=== PATIENT | female | born 1980 | race American Indian/Alaskan Native ===

== ENCOUNTER 2019-02-07 13:11 | Emergency (ER) | payer SELFPAY ==
[2019-02-07 13:48] VITALS: BP 117/75
--- NOTE | 2019-02-07 13:50 | Event Note ---
ED Screening Note Date of service: 02/07/19 Time: 13:46 ED Screening Note: This initial assessment/diagnostic orders/clinical plan/treatment(s) is/are subject to change based on patients health status, clinical progression and re- assessment by fellow clinical providers in the ED. Further treatment and workup at subsequent clinical providers discretion. Patient/guardian urged not to elope from the ED as their condition may be serious if not clinically assessed and managed. Initial orders include:
--- NOTE | 2019-02-07 13:58 | Event Note ---
ED Screening Note Date of service: 02/07/19 Time: 13:52 ED Screening Note: Patient report 14 weks pregnany and no obgyn. no care, Reports to lower abdomen . Reports nausea and vomiting x 5 days. no abdominal denies vaginal bleeding This initial assessment/diagnostic orders/clinical plan/treatment(s) is/are subject to change based on patients health status, clinical progression and re- assessment by fellow clinical providers in the ED. Further treatment and workup at subsequent clinical providers discretion. Patient/guardian urged not to elope from the ED as their condition may be serious if not clinically assessed and managed. Initial orders include:
[2019-02-07 14:09] LABS: HCG Qualitative,Urine Positive (Negative)
[2019-02-07 14:19] LABS: Bilirubin,Urine NEG (Negative); Blood,Urine NEG (Negative); Calcium Oxalate Crystals,Urine 2+; Color,Urine Yellow (Yellow); Mucus,Urine FEW /HPF; Protein,Urine <15 mg/dL mg/dL (Negative)
[2019-02-07 14:43] LABS: Alanine Aminotransferase 23 units/L (7-56); Albumin 4.1 g/dL (3.9-5); BUN/Creatinine Ratio 15; Bilirubin,Direct < 0.2 mg/dL (0-0.2); Blood Urea Nitrogen 9 mg/dL (7-17); Hemolysis Index 12
[2019-02-07] MEDS ORDERED: METOCLOPRAMIDE 10 MG/2 ML INJ IV ONE (14:50)
[2019-02-07] MEDS ORDERED: SODIUM CHLORIDE 0.9% 1000 ML 1,000 ML IV ONE (14:51)
--- NOTE | 2019-02-07 16:52 | Emergency Department Report ---
ED General Adult HPI - General Chief complaint: Abdominal Pain Stated complaint: COMPLAINT/14 WKS Time Seen by Provider: 02/07/19 13:46 Source: patient Mode of arrival: Ambulatory Limitations: No Limitations - History of Present Illness Initial comments: Patient is a 38-year-old female at 14 weeks who presents with abdominal pain and nausea and vomiting that's been going on for the last couple days. Patient states that she has not followed up with her DIRECTOR MEDICAL ECONOMICS for the length of this . Patient's abdominal pain is moderate nothing makes it better nothing makes it worse. She denies having any chest pain or having any diarrhea . - Related Data Previous Rx's Medication Instructions Recorded Last Taken Type Metoclopramide [Reglan] 10 mg PO Q6H PRN #20 tab 02/07/19 Unknown Rx Allergies Allergy/AdvReac Type Severity Reaction Status Date / Time No Known Allergies Allergy Unverified 02/07/19 13:34 ED Review of Systems ROS: Stated complaint: COMPLAINT/14 WKS Other details as noted in HPI Constitutional: denies: chills, fever Eyes: denies: eye pain, eye discharge, vision change ENT: denies: ear pain, throat pain Respiratory: denies: cough, shortness of breath, wheezing Cardiovascular: denies: chest pain, palpitations Endocrine: no symptoms reported Gastrointestinal: abdominal pain, nausea, vomiting. denies: diarrhea Genitourinary: denies: urgency, dysuria, discharge Musculoskeletal: denies: back pain, joint swelling, arthralgia Skin: denies: rash, lesions Neurological: denies: headache, weakness, paresthesias Psychiatric: denies: anxiety, depression Hematological/Lymphatic: denies: easy bleeding, easy bruising ED Past Medical Hx - Social History Smoking Status: Never Smoker Substance Use Type: None - Medications Home Medications: Home Medications Medication Instructions Recorded Confirmed Last Taken Type Metoclopramide [Reglan] 10 mg PO Q6H PRN #20 tab 02/07/19 Unknown Rx ED Physical Exam - General Limitations: No Limitations General appearance: alert, in no apparent distress - Head Head exam: Present: atraumatic, normocephalic - Eye Eye exam: Present: normal appearance - ENT ENT exam: Present: mucous membranes moist - Neck Neck exam: Present: normal inspection - Respiratory Respiratory exam: Present: normal lung sounds bilaterally. Absent: respiratory distress - Cardiovascular Cardiovascular Exam: Present: regular rate, normal rhythm. Absent: systolic murmur, diastolic murmur, rubs, gallop - GI/Abdominal GI/Abdominal exam: Present: soft, normal bowel sounds - Extremities Exam Extremities exam: Present: normal inspection - Back Exam Back exam: Present: normal inspection - Neurological Exam Neurological exam: Present: alert, oriented X3 - Psychiatric Psychiatric exam: Present: normal affect, normal mood - Skin Skin exam: Present: warm, dry, intact, normal color. Absent: rash ED Course Vital Signs 02/07/19 13:47 Temperature 98.6 F Pulse Rate 110 H Respiratory 18 Rate Blood Pressure 117/75 [Left] O2 Sat by Pulse 100 Oximetry ED Medical Decision Making - Lab Data Result diagrams: 02/07/19 14:03 Lab Results 02/07/19 02/07/19 02/07/19 Range/Units 13:20 14:03 Unknown Sodium 136 L (137-145) mmol/L Potassium 4.5 (3.6-5.0) mmol/L Chloride 100.8 (98-107) mmol/L Carbon Dioxide 22 (22-30) mmol/L Anion Gap 18 mmol/L BUN 9 (7-17) mg/dL Creatinine 0.6 L (0.7-1.2) mg/dL Estimated GFR > 60 ml/min BUN/Creatinine Ratio 15 % Glucose 97 (65-100) mg/dL Calcium 10.0 (8.4-10.2) mg/dL Total Bilirubin 0.20 (0.1-1.2) mg/dL Direct Bilirubin < 0.2 (0-0.2) mg/dL AST 21 (5-40) units/L ALT 23 (7-56) units/L Alkaline Phosphatase 44 (35-129) units/L Total Protein 7.3 (6.3-8.2) g/dL Albumin 4.1 (3.9-5) g/dL Albumin/Globulin Ratio 1.3 % Urine Color Yellow (Yellow) Urine Turbidity Cloudy (Clear) Urine pH 5.0 (5.0-7.0) Ur Specific [place] 1.016 (1.003-1.030) Urine Protein <15 mg/dl (Negative) mg/dL Urine Glucose (UA) Neg (Negative) mg/dL Urine Ketones Neg (Negative) mg/dL Urine Blood Neg (Negative) Urine Nitrite Neg (Negative) Urine Bilirubin Neg (Negative) Urine Urobilinogen 2.0 (<2.0) mg/dL Ur Leukocyte Esterase Mod (Negative) Urine WBC (Auto) 8.0 H (0.0-6.0) /HPF Urine RBC (Auto) 5.0 (0.0-6.0) /HPF U Epithel Cells (Auto) 10.0 (0-13.0) /HPF Calcium Oxalate Crystal 2+ Urine Mucus Few /HPF Urine HCG, Qual Positive A (Negative) - Medical Decision Making Chief Medical diagnosis: Hyperemesis gravidarum Differential medical diagnosis: Molar , ectopic Get ultrasound of baby I'll give patient Reglan IV fluids I'll give blood work and will reevaluate get a urinalysis. Critical care attestation.: If time is entered above; I have spent that time in minutes in the direct care of this critically ill patient, excluding procedure time. ED Disposition Clinical Impression: Nausea and vomiting Qualifiers: Vomiting type: unspecified Vomiting Intractability: non-intractable Qualified Code(s): R11.2 - Nausea with vomiting, unspecified Qualifiers: Weeks of gestation: 15 weeks Qualified Code(s): Z3A.15 - 15 weeks gestation of Disposition: DC-01 TO HOME OR SELFCARE Is pt being admited?: No Does the pt Need Aspirin: No Condition: Stable Instructions: (ED), Morning Sickness (ED) Prescriptions: Metoclopramide [Reglan] 10 mg PO Q6H PRN #20 tab PRN Reason: Nausea Referrals: JENNIFER PIERCE MD [Staff Physician] - 3-5 Days
--- NOTE | 2019-02-07 17:08 | Ultrasound Report ---
ULTRASOUND OBSTETRIC INDICATION / CLINICAL INFORMATION: MAIN: abd pain PELVIC PAIN 2 WEEKS . Clinical Gestational Age (GA): 14 weeks, 4 days TECHNIQUE: Transabdominal. COMPARISON: None available. FINDINGS: There is a single intrauterine . Biparietal Diameter = 3.07 cm = 15 weeks, 5 day(s). Head Circumference = 11.8 cm = 15 weeks, 6 day(s). Abdominal Circumference = 9.4 cm = 15 weeks, 4 day(s). Femur Length = 1.6 cm = 14 weeks, 5 day(s). Average Ultrasound Age (AUA) = 15 weeks, 3 day(s). Heart Rate: 171 beats per minute. Estimated Weight in grams (if calculated): Not calculated Estimated Weight Growth Percentile (if calculated): Not calculated Position: transverse, head to the maternal left. Cervix: closed. Length in cm (if measured): 3.8 cm Placenta: Posterior located and free of the os. Amniotic Fluid Volume: Subjectively normal Amniotic Fluid Index (SALVADOR) in cm (if calculated): . Maternal Adnexa: No significant abnormality. It is too early for a anatomical survey. IMPRESSION: 1. Single, living intrauterine with estimated sonographic age of 15 weeks, 3 day(s). 2. No significant sonographic abnormality. Signer Name: Fiona Long MD Signed: 02/07/2019 5:03 PM Workstation Name: [id number]
== END 2019-02-07 19:03 | disposition home or self-care (01) ==
LOC: ED 13:11
DX: O21.9 Vomiting of pregnancy, unspecified (principal); Z79.899 Other long term (current) drug therapy
CPT/HCPCS: 36415; 76805; 80048; 80076; 81001; 81025; 96361; 96374; 99284; J2765; J7030

== ENCOUNTER 2019-02-18 10:19 | Emergency (ER) | payer OTHER ==
[2019-02-18] MEDS ORDERED: TYLENOL PO ONE (10:42)
[2019-02-18] MEDS ORDERED: REGLAN IV ONE (10:42)
--- NOTE | 2019-02-18 10:47 | Emergency Department Report ---
HPI - General Chief Complaint: Nausea/Vomiting/Diarrhea Time Seen by Provider: 02/18/19 10:34 - HPI HPI: 38-year-old female presents to the emergency department with a complaint of some pelvic pain, nausea and vomiting while . The patient is about 17 weeks at this time. With this she is with 3 live children. She does not have any MANUFACTURING LAB TECHNICIAN. She is taking vitamins. She also complains of a slight headache but denies any vision change, fever, slurred speech, or any neurological deficits. She was here about 10 days ago for similar symptoms. No vaginal bleeding. ED Past Medical Hx - Past Medical History Previous Medical History?: No - Surgical History Past Surgical History?: No - Social History Smoking Status: Never Smoker Substance Use Type: None - Medications Home Medications: Home Medications Medication Instructions Recorded Confirmed Last Taken Type Metoclopramide [Reglan] 10 mg PO Q6H PRN #20 tab 02/07/19 Unknown Rx Nitrofurantoin [place]/M-Cryst 100 mg PO Q12HR #14 capsule 02/18/19 Unknown Rx [Macrobid CAP] ED Review of Systems ROS: Stated complaint: 16WKS/VOMITING/WEAKNESS Other details as noted in HPI Comment: All other systems reviewed and negative Constitutional: denies: chills, fever Eyes: denies: eye pain, vision change ENT: denies: ear pain, throat pain Respiratory: denies: cough, shortness of breath Cardiovascular: denies: chest pain, palpitations Gastrointestinal: abdominal pain, nausea, vomiting Genitourinary: other (pelvic pain). denies: dysuria, discharge Musculoskeletal: denies: back pain, arthralgia Neurological: denies: headache, weakness Physical Exam - Physical Exam Physical Exam: GENERAL: The patient is well-developed well-nourished. HENT: Normocephalic. Atraumatic. Patient has moist mucous membranes. EYES: Extraocular motions are intact. NECK: Supple. Trachea is midline. CHEST/LUNGS: Clear to auscultation. There is no respiratory distress noted. HEART/CARDIOVASCULAR: Regular. There is no tachycardia. There is no murmur. ABDOMEN: Abdomen is soft, nontender. Patient has normal bowel sounds. There is no abdominal distention. SKIN: Skin is warm and dry. NEURO: The patient is awake, alert, and oriented. The patient is cooperative. The patient has no focal neurologic deficits. Normal speech. MUSCULOSKELETAL: There is no tenderness or deformity. There is no limitation range of motion. There is no evidence of acute injury. ED Medical Decision Making - Lab Data Result diagrams: 02/18/19 10:40 02/18/19 10:40 - Radiology Data Radiology results: report reviewed OB ULTRASOUND >= 14 WEEKS FETUS INDICATION: , pelvic pain COMPARISON: 02/07/2019 FINDINGS: A single gestation intrauterine is present with cephalic presentation. The placenta is posterior, grade 0 and free of the cervical os. heart tones measure 152 bpm. The cervix measures 3.3 cm. Qualitative amniotic fluid volume is within normal limits. SALVADOR was not measured anatomical survey was not performed. Biparietal diameter is 3.6 cm which equals 17 weeks 1 day. Head circumference is 13.1 cm which equals 16 weeks 5 days. Abdominal circumference is 10.7 cm which equals 16 weeks 4 days. Femur length is 2.2 cm which equals 16 weeks 4 days. Overall estimated sonographic age is 16 weeks 5 days. EDC: 07/31/2019 HC/AC ratio: 1.2 Cephalic index: 84.2 Estimated weight 162 g A 2.6 x 2.3 cm simple right ovarian cyst is identified. The left ovary is not identified. IMPRESSION: Viable, single intrauterine dated at 16 weeks 5 days. 2.6 x 2.3 cm right ovarian cyst. - Medical Decision Making This patient presents with some nausea, vomiting, pelvic discomfort, while . The labs are mostly unremarkable except for a mild urinary tract infection and the patient will be treated with Macrobid. She received some Reglan and IV fluid resuscitation and upon reevaluation she is feeling improved. Able to pass oral challenge. Ultrasound shows live intrauterine at about 16 weeks and 5 days. She appears safe for discharge home at this time. Vital signs stable throughout her ED course. She has been given multiple referrals for MANUFACTURING LAB TECHNICIAN services. She will return to the ER with any worsening of her symptoms or any acute distress. - Differential Diagnosis , miscarriage, UTI, fibroids Critical Care Time: No Critical care attestation.: If time is entered above; I have spent that time in minutes in the direct care of this critically ill patient, excluding procedure time. ED Disposition Clinical Impression: Qualifiers: Weeks of gestation: 16 weeks Qualified Code(s): Z3A.16 - 16 weeks gestation of Nausea and vomiting Qualifiers: Vomiting type: unspecified Vomiting Intractability: non-intractable Qualified Code(s): R11.2 - Nausea with vomiting, unspecified UTI (urinary tract infection) Qualifiers: Urinary tract infection type: acute cystitis Hematuria presence: without hematuria Qualified Code(s): N30.00 - Acute cystitis without hematuria Disposition: TO HOME OR SELFCARE Is pt being admited?: No Condition: Stable Instructions: (ED), Urinary Tract Infection in Women (ED), Acute Nausea and Vomiting (ED) Additional Instructions: Please follow-up with a MANUFACTURING LAB TECHNICIAN in the next few days. Increase your oral rehydration. Take the antibiotics as prescribed for your urinary tract infection. Continue taking your vitamins. Return to the emergency Department with any worsening of your symptoms or any acute distress. Prescriptions: Nitrofurantoin [place]/M-Cryst [Macrobid CAP] 100 mg PO Q12HR #14 capsule Referrals: [facility] [Provider Group] - 3-5 Days [facility] [Provider Group] - 3-5 Days [facility] [Provider Group] - 3-5 Days Time of Disposition: 13:11
[2019-02-18 10:57] LABS: Basophils # (Auto) 0.1 K/mm3 (0.0-0.1); Basophils % (Auto) 0.7 % (0.0-1.8); Eosinophils # (Auto) 0.3 K/mm3 (0.0-0.4); Eosinophils % (Auto) 3.7 % (0.0-4.3); Hematocrit 32.8 % (30.3-42.9); Hemoglobin 11.3 gm/dl (10.1-14.3); Lymphocytes # (Auto) 1.4 K/mm3 (1.2-5.4); Lymphocytes % (Auto) 17.3 % (13.4-35.0); Mean Corpuscular HGB Conc 34 % (30-34); Mean Corpuscular Volume 80 fl (79-97); Monocytes # (Auto) 0.6 K/mm3 (0.0-0.8); Monocytes % (Auto) 7.9 % (0.0-7.3); Platelet Count 242 K/mm3 (140-440); Red Cell Distribution Width 15.2 % (13.2-15.2)
--- NOTE | 2019-02-18 12:07 | Ultrasound Report ---
OB ULTRASOUND >= 14 WEEKS FETUS INDICATION: , pelvic pain COMPARISON: 02/07/2019 FINDINGS: A single gestation intrauterine is present with cephalic presentation. The placenta is post erior, grade 0 and free of the cervical os. heart tones measure 152 bpm. The cervix measures 3 .3 cm. Qualitative amniotic fluid volume is within normal limits. SALVADOR was not measured anatomical survey was not performed. Biparietal diameter is 3.6 cm which equals 17 weeks 1 day. Head circumference is 13.1 cm which equals 16 weeks 5 days. Abdominal circumference is 10.7 cm which equals 16 weeks 4 days. Femur length is 2.2 cm which equals 16 weeks 4 days. Overall estimated sonographic age is 16 weeks 5 days. EDC: 07/31/2019 HC/AC ratio: 1.2 Cephalic index: 84.2 Estimated weight 162 g A 2.6 x 2.3 cm simple right ovarian cyst is identified. The left ovary is not identified. IMPRESSION: Viable, single intrauterine dated at 16 weeks 5 days. 2.6 x 2.3 cm right ovarian cyst. Signer Name: Kana Randle Jr, MD Signed: 02/18/2019 12:02 PM Workstation Name: [id number]
[2019-02-18 12:18] LABS: Alanine Aminotransferase 13 units/L (7-56); Albumin 3.9 g/dL (3.9-5); BUN/Creatinine Ratio 10; Blood Urea Nitrogen 5 mg/dL (7-17); Calcium 8.9 mg/dL (8.4-10.2); Hemolysis Index 0
[2019-02-18 12:31] LABS: HCG Qualitative,Urine Positive (Negative)
[2019-02-18 12:36] LABS: Bacteria,Urine 2+ /HPF (Negative); Bilirubin,Urine NEG (Negative); Blood,Urine NEG (Negative); Color,Urine Yellow (Yellow); Hyaline Casts,Urine 1 /LPF; Protein,Urine <15 mg/dL mg/dL (Negative); Urobilinogen,Urine < 2.0 mg/dL (<2.0)
[2019-02-18] MEDS ORDERED: MACROBID PO ONE (12:54)
[2019-02-18 13:13] VITALS: BP 104/32
== END 2019-02-18 13:23 | disposition home or self-care (01) ==
LOC: ED 10:19
DX: O23.42 Unspecified infection of urinary tract in pregnancy, second trimester (principal); O21.9 Vomiting of pregnancy, unspecified; Z3A.16 16 weeks gestation of pregnancy; Z79.899 Other long term (current) drug therapy
CPT/HCPCS: 36415; 76805; 80053; 81001; 81025; 82962; 85025; 87086; 96374; 99284; J2765

== ENCOUNTER 2019-06-05 11:14 | Emergency (ER) | payer SELFPAY ==
[2019-06-05 11:29] VITALS: BP 112/74
--- NOTE | 2019-06-05 11:39 | Emergency Department Report ---
Chief Complaint: Abdominal Pain Stated Complaint: VOMITING/ABD PAIN, BABY NOT MOVING - HPI History of Present Illness: 39 y/o female comes appr 40 weeks with no care and has abd pain with no feeling of baby moving in the last 3 days. Patient had a US in Feb 2019 she was 16 weeks preg. LMP unknown. - Exam Vital Signs: Vital Signs 06/05/19 11:25 Temperature 97.6 F Pulse Rate 101 H Respiratory 20 Rate Blood Pressure 112/74 O2 Sat by Pulse 100 Oximetry Physical Exam: Patient is axo NAD Non toxic. Ambulating without difficulties. MSE screening note: Focused history and physical exam performed. Due to findings the following was ordered: 39 y/o female comes appr 40 weeks with no care and has abd pain with no feeling of baby moving in the last 3 days. Patient had a US in Feb 2019 she was 16 weeks preg. LMP unknown. Patient will be transferred to L&D. ED Disposition for MSE Condition: Stable Instructions: Abdominal Pain (ED)
[2019-06-05] MEDS ORDERED: ONDANSETRON 4 MG/2 ML INJ ONE (11:46)
[2019-06-05] MEDS ORDERED: SODIUM CHLORIDE 0.9% 1000 ML 1,000 ML ONE (12:34)
== END 2019-06-05 11:45 | disposition home or self-care (01) ==
LOC: ED 11:14
DX: R10.9 Unspecified abdominal pain (principal); Z53.21 Procedure and treatment not carried out due to patient leaving prior to being seen by health care provider
CPT/HCPCS: J2405; J7030

== ENCOUNTER 2019-06-05 12:08 | Outpatient (CLI) | payer OTHER ==
[2019-06-05] MEDS ORDERED: ONDANSETRON 4 MG/2 ML INJ IV PRN (13:17)
[2019-06-05] MEDS ORDERED: LACTATED RINGERS 1,000 ML IV SCH (14:00)
[2019-06-05 14:06] LABS: Alanine Aminotransferase 6 units/L (7-56); Albumin 3.5 g/dL (3.9-5); BUN/Creatinine Ratio 8; Blood Urea Nitrogen 5 mg/dL (7-17); Calcium 9.3 mg/dL (8.4-10.2); Hemolysis Index 4
[2019-06-05 14:16] LABS: Hematocrit 35.1 % (30.3-42.9); Hemoglobin 11.8 gm/dl (10.1-14.3); Mean Corpuscular HGB Conc 34 % (30-34); Mean Corpuscular Volume 78 fl (79-97); Platelet Count 307 K/mm3 (140-440); Red Blood Count 4.52 M/mm3 (3.65-5.03)
[2019-06-05 15:58] LABS: Bacteria,Urine 1+ /HPF (Negative); Bilirubin,Urine NEG (Negative); Blood,Urine NEG (Negative); Color,Urine Yellow (Yellow); Mucus,Urine FEW /HPF; Protein,Urine <15 mg/dL mg/dL (Negative); Urobilinogen,Urine < 2.0 mg/dL (<2.0)
[2019-06-05 16:33] VITALS: BP 93/61
== END 2019-06-05 16:35 | disposition home or self-care (01) ==
LOC: TRG 12:08 → LD 12:10 → TRG 16:35
PROVIDERS: ATTEND Obstetrics & Gynecology
DX: O21.2 Late vomiting of pregnancy (principal); O09.33 Supervision of pregnancy with insufficient antenatal care, third trimester; O09.523 Supervision of elderly multigravida, third trimester; O47.03 False labor before 37 completed weeks of gestation, third trimester; O26.893 Other specified pregnancy related conditions, third trimester; R10.9 Unspecified abdominal pain; Z3A.32 32 weeks gestation of pregnancy
CPT/HCPCS: 36415; 80053; 81001; 82150; 83690; 85027; 96365; 96366; J2405; J7120; 96360; 96361